=== PATIENT | female | born 1970 | race Hispanic/Latino ===

== ENCOUNTER 2022-08-13 17:41 | Observation (INO) | payer OTHER ==
[2022-08-13] VITALS: BP 113/90
[~2022-08-13] VITALS: Ht 154.9 cm; Wt 79.4 kg
[2022-08-13 18:17] LABS: BASOPHILS % 0.3 % (0.0-1.0); EOSINOPHILS # (AUTO) 0.1 (0.0-0.4); EOSINOPHILS % 1.6 % (0.0-6.0); HEMATOCRIT 42.6 % (34.2-44.1); HEMOGLOBIN 13.9 g/dL (12.0-16.0); LYMPHOCYTES % 34.4 % (18.0-39.1); MEAN CORPUSCULAR HEMOGLOBIN 28.8 pg (28-32); MEAN CORPUSCULAR HGB CONC 32.6 g/dL (31-35); MEAN CORPUSCULAR VOLUME 88.2 fL (81-99); MONOCYTES # (AUTO) 0.8 (0.2-0.8); MONOCYTES % 8.8 % (4.4-11.3); NEUTROPHILS # (AUTO) 4.8 (2.1-6.9); NEUTROPHILS % 54.6 % (38.7-80.0); PLATELET COUNT 270 x10e3/uL (140-360); RED BLOOD COUNT 4.83 x10e6/uL (3.6-5.1); RED CELL DISTRIBUTION WIDTH 13.8 % (11.7-14.4)
[2022-08-13 18:38] LABS: ALBUMIN 4.1 g/dL (3.5-5.0); ALBUMIN/GLOBULIN RATIO 1.1 (0.8-2.0); ANION GAP 16.8 mmol/L (8-16); CALCIUM 9.4 mg/dL (8.4-10.2); CREATININE, SERUM 0.72 mg/dL (0.57-1.11); POTASSIUM 3.8 mmol/L (3.5-5.1)
[2022-08-13 18:44] LABS: CREATINE KINASE MB 0.7 ng/mL (0-5.0)
[2022-08-13 18:45] LABS: AMPHETAMINES SCREEN,URINE NEGATIVE (NEGATIVE); BENZODIAZEPINES SCREEN,URINE NEGATIVE (NEGATIVE); PHENCYCLIDINE SCREEN,URINE NEGATIVE (NEGATIVE)
[2022-08-13] MEDS ORDERED: ONDANSETRON HCL INJ 2MG/ML 2ML 2 MG/ML VIAL IV PRN (19:15)
[2022-08-13] MEDS ORDERED: Morphine 4mg INJECTION 4 MG/ML INJ IV PRN (19:15)
[2022-08-13] MEDS: ASPIRIN 325 MG TAB PO SCH ×2 (22:30→23:49)
[2022-08-13] MEDS ORDERED: DOCUSATE SODIUM 100 MG CAP PO PRN (22:30)
[2022-08-13] MEDS ORDERED: ACETAMINOPHEN 325 MG TAB PO PRN (22:30)
[2022-08-13 23:07] LABS: CHOL/HDL RATIO 5.3 (3.0-3.6)
[2022-08-14] VITALS (8 sets, daily range): BP systolic 106–123; BP diastolic 62–90
[2022-08-14] MEDS ORDERED: ZESTRIL10 MG PO (01:32)
[2022-08-14] MEDS ORDERED: LYRICA25 MG PO (01:34)
[2022-08-14 05:01] LABS: CREATINE KINASE 45 IU/L (29-168)
[2022-08-14 06:08] LABS: BASOPHILS % 0.3 % (0.0-1.0); EOSINOPHILS # (AUTO) 0.2 (0.0-0.4); EOSINOPHILS % 2.3 % (0.0-6.0); HEMATOCRIT 38.6 % (34.2-44.1); HEMOGLOBIN 12.6 g/dL (12.0-16.0); LYMPHOCYTES # (AUTO) 3.2 (1.0-3.2); LYMPHOCYTES % 34.6 % (18.0-39.1); MEAN CORPUSCULAR HEMOGLOBIN 28.6 pg (28-32); MEAN CORPUSCULAR HGB CONC 32.6 g/dL (31-35); MEAN CORPUSCULAR VOLUME 87.5 fL (81-99); MONOCYTES # (AUTO) 0.9 (0.2-0.8); MONOCYTES % 9.7 % (4.4-11.3); NEUTROPHILS # (AUTO) 4.9 (2.1-6.9); NEUTROPHILS % 52.8 % (38.7-80.0); PLATELET COUNT 264 x10e3/uL (140-360); RED BLOOD COUNT 4.41 x10e6/uL (3.6-5.1); RED CELL DISTRIBUTION WIDTH 13.6 % (11.7-14.4)
[2022-08-14 08:51] LABS: ALBUMIN 3.6 g/dL (3.5-5.0); ANION GAP 22.1 mmol/L (8-16); CALCIUM 8.9 mg/dL (8.4-10.2); CREATININE, SERUM 0.67 mg/dL (0.57-1.11); POTASSIUM 4.1 mmol/L (3.5-5.1)
[2022-08-14] MEDS: FAMOTIDINE 20 MG TAB PO SCH ×2 (09:32→16:54)
[2022-08-14] MEDS: ASPIRIN 325 MG TAB PO SCH (09:32)
[2022-08-14] MEDS: SODIUM BICARBONATE 8.4% 50 ML in SODIUM CHLORIDE 0.45% 1,000 ML IV SCH (14:51)
[2022-08-14 15:06] LABS: CREATINE KINASE 46 IU/L (29-168)
[2022-08-14] MEDS: ENOXAPARIN SOD INJ 40 MG/0.4 ML SYR SC SCH (16:54)
[2022-08-15] VITALS: BP 123/67
[2022-08-15 04:00] VITALS: BP 119/62
[2022-08-15] MEDS: SODIUM BICARBONATE 8.4% 50 ML in SODIUM CHLORIDE 0.45% 1,000 ML IV SCH ×2 (04:33→17:54)
[2022-08-15 07:36] LABS: ANION GAP 15.8 mmol/L (8-16); CREATININE, SERUM 0.67 mg/dL (0.57-1.11); POTASSIUM 3.8 mmol/L (3.5-5.1)
[2022-08-15 07:59] LABS: CREATINE KINASE 55 IU/L (29-168)
[2022-08-15] MEDS: ASPIRIN 325 MG TAB PO SCH (08:06)
[2022-08-15] MEDS: FAMOTIDINE 20 MG TAB PO SCH ×2 (08:06→17:00)
[2022-08-15 08:14] VITALS: BP 98/49
[2022-08-15 09:55] VITALS: BP 98/49
[2022-08-15 11:27] VITALS: BP 107/57
[2022-08-15 15:45] VITALS: BP 121/59
[2022-08-15] MEDS: ENOXAPARIN SOD INJ 40 MG/0.4 ML SYR SC SCH (17:00)
[2022-08-15] MEDS ORDERED: ASPIRIN EC81 MG PO (18:40)
[2022-08-15] MEDS ORDERED: FAMOTIDINE20 MG PO (18:40)
[2022-08-15] MEDS ORDERED: ATORVASTATIN CA20 MG PO (18:41)
== END 2022-08-15 19:45 | disposition home or self-care (01) ==
LOC: ER 17:44 → ERHOLD 19:07 → MED/SURG3 23:34
PROVIDERS: ADMIT Internal Medicine; ATTEND Internal Medicine
DX: R07.89 Other chest pain (principal); I10 Essential (primary) hypertension; E11.9 Type 2 diabetes mellitus without complications; Z20.822 Contact with and (suspected) exposure to COVID-19; E78.5 Hyperlipidemia, unspecified; Z79.82 Long term (current) use of aspirin
CPT/HCPCS: 0223U; 36415; 71045; 80048; 80053; 80061; 80307; 82550; 82553; 82948; 83036; 83880; 84484; 85025; 85379; 93005; 93306; 96360; 99284; G0378; J1650